=== PATIENT | female | born 1990 | race Two or more races ===

== ENCOUNTER 2022-09-05 11:58 | Emergency (ER) | payer OTHER ==
[2022-09-05 12:11] VITALS: BP 114/75; PULSE 79; RESP 18; TEMP 98.2; BMI 34.3
== END 2022-09-05 14:00 | disposition home or self-care (01) ==
LOC: JERFT 11:58 → JER 11:58 → JERFT 14:00
PROC: 0HQGXZZ Repair Left Hand Skin, External Approach (ICD-10-PCS; principal; 2022-09-05)
DX: S61.211A Laceration without foreign body of left index finger without damage to nail, initial encounter (principal); W27.4XXA Contact with kitchen utensil, initial encounter
CPT/HCPCS: 99282-25